=== PATIENT | male | born 1955 | race Hispanic/Latino ===

== ENCOUNTER 2018-05-06 22:06 | Emergency (ER) | payer SELFPAY ==
[~2018-05-06] VITALS: Ht 180.3 cm; Wt 97.0 kg
[2018-05-07 00:24] LABS: HEMATOCRIT 35.2 % (38.0-50.0); HEMOGLOBIN 12.3 G/DL (12.5-16.6); MCH 33.2 PG (29.0-34.0); MCHC 34.9 G/DL (30.0-36.0); MCV 94.9 FL (86-99); PLATELET COUNT 190 K/uL (156-360); RBC DIS.WIDTH-CV 12.5 % (11.8-14.6); RBC DIS.WIDTH-SD 43.5 % (39-53); RED BLOOD COUNT 3.71 M/uL (4.00-5.50); WHITE BLOOD COUNT 7.6 K/uL (4.1-10.2)
[2018-05-07 00:39] LABS: ALBUMIN 3.9 g/dL (3.2-4.8); CHLORIDE 108 mEq/L (99-109); POTASSIUM 4.1 mEq/L (3.7-5.4); SODIUM 140 mEq/L (136-147)
[2018-05-07 00:42] LABS: GLUCOSE 104 mg/dL (70-99); TOTAL PROTEIN 6.1 g/dL (6.4-8.3)
[2018-05-07 00:44] LABS: TOTAL BILIRUBIN 0.3 mg/dL (0.0-1.0)
[2018-05-07 00:45] LABS: ALKALINE PHOSPHATASE 114 IU/L (3-129); CREATININE 1.2 mg/dL (0.6-1.3)
[2018-05-07 00:46] LABS: UREA NITROGEN (BUN) 15 mg/dL (9-23)
[2018-05-07 00:47] LABS: AST (GOT) 17 IU/L (2-34)
[2018-05-07 00:48] LABS: ALT (GPT) 17 IU/L (3-49)
[2018-05-07 00:49] LABS: CREATINE KINASE 110 IU/L (1-294); LIPASE 29 U/L (1.0-51.0); TOTAL CK 110 IU/L (1-294)
[2018-05-07 01:00] LABS: CK-MB 2.8 ng/mL (0.0-4.9); CKMB RELATIVE INDEX 2.5 (0.0-3.9)
[2018-05-07 01:02] LABS: GFR ESTIMATE (CALCULATED) > 59 mL/min/ (58.99-99999)
[2018-05-07] MEDS ORDERED: FIORICET 50-301 EAC1 PO (04:22)
[2018-05-07 04:36] VITALS: BP 149/88
== END 2018-05-07 04:42 | disposition home or self-care (01) ==
LOC: EME 22:06
PROVIDERS: Emergency Medicine
DX: R51 Headache (principal); I10 Essential (primary) hypertension; E11.9 Type 2 diabetes mellitus without complications
CPT/HCPCS: 70450; 80053; 82550; 82553; 83690; 85027; 99281; 99285; J1885; J7030